=== PATIENT | male | born 1950 | race Caucasian/White ===

== ENCOUNTER 2017-08-03 12:42 | Emergency (ER) | payer OTHER ==
[~2017-08-03] VITALS: Ht 182.9 cm; Wt 102.1 kg
[2017-08-03] MEDS ORDERED: EZETIMIBE 10 MG (13:56)
[2017-08-03] MEDS ORDERED: [UNRECOGNIZED DRUG - OTHER] (13:56)
[2017-08-03] MEDS ORDERED: BISOPROLOL-HCT1 EAC1 (13:57)
[2017-08-03] MEDS ORDERED: ALTACE5 MG (13:57)
[2017-08-03] MEDS ORDERED: LUTEIN20 MG (13:58)
[2017-08-03] MEDS ORDERED: VITAMIN D325 GM (13:58)
[2017-08-03] MEDS ORDERED: LIPITOR20 MG (13:58)
[2017-08-03] MEDS ORDERED: FENOFIBRATE200 MG (13:58)
[2017-08-03] MEDS ORDERED: MAGNESIUM100 MG (13:59)
== END 2017-08-03 15:18 | disposition home or self-care (01) ==
LOC: ER 12:42
DX: S61.421A Laceration with foreign body of right hand, initial encounter (principal); W26.8XXA Contact with other sharp object(s), not elsewhere classified, initial encounter; Y93.89 Activity, other specified; Y92.69 Other specified industrial and construction area as the place of occurrence of the external cause; Y99.8 Other external cause status